=== PATIENT | female | born 1975 | race Caucasian/White ===

== ENCOUNTER 2017-03-09 14:12 | Emergency (ER) | payer MEDICAID ==
--- NOTE | 2017-03-21 16:41 | ER ---
ADMIT: 03/09/2017 RM/LOC: ER [facility] MR#: [id number] [address] [address] CHUCKY NGUYEN [address] [place] [address] Emergency Room Report SEX: F AGE: 42 : 1975 DATE: 03/09/2017 This 42-year-old female comes to the Emergency Department with 7 days worth of right leg swelling and feeling of tiredness. See T sheet for history and physical. Doppler of the right lower extremity is negative for DVT. The patient is diagnosed with leg swelling. A chest x-ray was also negative. The patient is instructed to follow up with her primary care provider on Saturday. DIAGNOSIS: Leg swelling and edema. Marco Langley MD/ page JOB #: [id number] CC: Raghu Ashley MD, Attending Physician Lelo Haas, Family Physician
== END 2017-03-09 16:00 | disposition home or self-care (01) ==
LOC: ER 14:12
DX: R22.41 Localized swelling, mass and lump, right lower limb (principal); F17.210 Nicotine dependence, cigarettes, uncomplicated; E04.9 Nontoxic goiter, unspecified; Z88.2 Allergy status to sulfonamides; Z79.899 Other long term (current) drug therapy; Z90.89 Acquired absence of other organs; Z98.890 Other specified postprocedural states